=== PATIENT | male | born 1995 | race Caucasian/White ===

== ENCOUNTER 2020-11-17 20:42 | Emergency (ER) | payer OTHER ==
[~2020-11-17] VITALS: Ht 185.4 cm; Wt 91.4 kg
[2020-11-17] MEDS ORDERED: ONDANSETRON 4MG/2ML VIAL IV ONE (21:55)
[2020-11-17] MEDS ORDERED: NS 1,000 ML IV ONE ×2 (21:55→23:05)
--- NOTE | 2020-11-17 22:06 | REPVR ---
PROCEDURE INFORMATION: Exam: CT Head Without Contrast Exam date and time: 11/17/2020 9:56 PM Age: 25 years old Clinical indication: Syncope and collapse; Additional info: Near-syncope TECHNIQUE: Imaging protocol: Computed tomography of the head without contrast. Radiation optimization: All CT scans at this facility use at least one of these dose optimization techniques: automated exposure control; mA and/or kV adjustment per patient size (includes targeted exams where dose is matched to clinical indication); or iterative reconstruction. COMPARISON: No relevant prior studies available. FINDINGS: Brain: Normal. No hemorrhage. Unremarkable white matter. No mass effect. Cerebral ventricles: No ventriculomegaly. Paranasal sinuses: Visualized sinuses are unremarkable. No fluid levels. Mastoid air cells: Visualized mastoid air cells are well aerated. 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 Soft tissues: Unremarkable. IMPRESSION: Negative noncontrast head CT. Electronically signed by: Julio Galloway On 11/17/2020 22:06:03 PM
[2020-11-17 22:24] LABS: BASO % 0.1 % (0.0-1.0); EOS % 0.1 % (0.0-3.0); HEMATOCRIT 47.9 % (42.0-52.0); HEMOGLOBIN 15.6 g/dl (13.5-17.5); LYMPH # 0.7 10^3/uL (1.5-5.0); LYMPH % 6.5 % (24.0-44.0); MEAN CORPUSCULAR HEMOGLOBIN 28.7 pg (27.0-33.0); MEAN CORPUSCULAR HGB CONC 32.6 g/dl (32.0-36.5); MEAN CORPUSCULAR VOLUME 88.1 fl (80.0-96.0); MONO # 0.4 10^3/uL (0.0-0.8); NEUTROPHILS # 9.6 10^3/uL (1.5-8.5); NEUTROPHILS % 88.8 % (36.0-66.0); PLATELET COUNT, AUTOMATED 253 10^3/uL (150-450); RED BLOOD COUNT 5.44 10^6/uL (4.30-6.10); WHITE BLOOD COUNT 10.8 10^3/uL (4.0-10.0)
[2020-11-17 22:45] LABS: AMPHETAMINES LEVEL URINE POSITIVE (NEGATIVE); BARBITURATES URINE NEGATIVE (NEGATIVE); BENZODIAZEPINES URINE NEGATIVE (NEGATIVE); CANNABINOIDS URINE NEGATIVE (NEGATIVE); COCAINE METABOLITE URINE NEGATIVE (NEGATIVE); METHADONE URINE NEGATIVE (NEGATIVE); OPIATES URINE NEGATIVE (NEGATIVE); PHENCYCLIDINE URINE NEGATIVE (NEGATIVE)
[2020-11-17 22:55] LABS: BLOOD UREA NITROGEN 17 MG/DL (7-18); CALCIUM LEVEL 8.6 MG/DL (8.5-10.1); CARBON DIOXIDE LEVEL 27 MEQ/L (21-32); CHLORIDE LEVEL 106 MEQ/L (98-107); CK-MB VALUE MASS 3.1 NG/ML (<3.6); CPK CREATINE PHOSPHOKINASE 323 U/L (39-308); CREATININE FOR GFR 1.37 MG/DL (0.70-1.30); FREE T4 1.34 NG/DL (0.76-1.46); GLOMERULAR FILTRATION RATE > 60.0 (>60); GLUCOSE, FASTING 104 MG/DL (70-100); MAGNESIUM LEVEL 2.3 MG/DL (1.8-2.4); MB/CK RELATIVE INDEX 0.96 (< OR =4); POTASSIUM SERUM 4.3 MEQ/L (3.5-5.1); SODIUM LEVEL 139 MEQ/L (136-145); TROPONIN I < 0.02 NG/ML (< 0.10)
[2020-11-18 01:04] VITALS: BP 141/71
--- NOTE | 2020-11-18 09:04 | ECGEPIP ---
[facility] - ED Test Date: 2020-11-17 Pat Name: LADY PERAZA Department: Room: - Gender: Male Event Operations Manager: harvinder : 1995 Requested By: MICHAELLE HUSSEIN PA-C Order Number: [id number] Reading MD: Agustin Perez Measurements Intervals [place] Rate: 74 P: 43 MD: 144 QRS: 57 QRSD: 96 T: 21 QT: 422 QTc: 468 Interpretive Statements Sinus rhythm with premature atrial complexes with aberrant conduction NONSPECIFIC T WAVE ABNORMALITY(S) NO PRIORS FOR COMPARISON Electronically Signed on 11-18-2020 9:04:15 EDT by Agustin Perez
== END 2020-11-18 01:06 | disposition home or self-care (01) ==
LOC: M ED 20:42
DX: R42 Dizziness and giddiness (principal); R20.2 Paresthesia of skin; T43.625A Adverse effect of amphetamines, initial encounter
CPT/HCPCS: 70450; 80048; 80307; 82550; 82553; 83735; 84439; 84443; 84484; 85025; 85379; 93005; 96361; 96374; 99284; J2405

== ENCOUNTER 2021-02-27 06:31 | Emergency (ER) | payer OTHER ==
[~2021-02-27] VITALS: Ht 185.4 cm; Wt 93.2 kg
--- OUTSIDE RECORDS SUMMARY | 2021-02-27 07:21 | CCD ---
Author Author [facility] Address Unknown Phone Unavailable Support Name Relationship Address Phone [facility] Next Of Kin [address] [place] [address] Unavailable Re-disclosure Warning The records that you are about to access may contain information from federally-assisted alcohol or drug abuse programs. If such information is present, then the following federally mandated warning applies: This information has been disclosed to you from records protected by federal confidentiality rules (42 CFR part 2). The federal rules prohibit you from making any further disclosure of this information unless further disclosure is expressly permitted by the written consent of the person to whom it pertains or as otherwise permitted by 42 CFR part 2. A general authorization for the release of medical or other information is NOT sufficient for this purpose. The Federal rules restrict any use of the information to criminally investigate or prosecute any alcohol or drug abuse patient.The records that you are about to access may contain highly sensitive health information, the redisclosure of which is protected by Article 27-F of the [facility] Public Health law. If you continue you may have access to information: Regarding HIV / AIDS; Provided by facilities licensed or operated by the [facility] Office of Mental Health; or Provided by the [facility] Office for People With Developmental Disabilities. If such information is present, then the following [facility] mandated warning applies: This information has been disclosed to you from confidential records which are protected by state law. State law prohibits you from making any further disclosure of this information without the specific written consent of the person to whom it pertains, or as otherwise permitted by law. Any unauthorized further disclosure in violation of state law may result in a fine or senior living sentence or both. A general authorization for the release of medical or other information is NOT sufficient authorization for further disc losure. Immunizations Vaccine Date Status Description Data Source(s) COVID-19 VACCINE Pfizer 07/27/2020 12:00:00 AM EDT completed [facility] Vaccine Series Complete: NOThis Data was Submitted to [facility] Via [place]. Medications No Information Insurance Providers Payer name Policy type / Coverage type Policy ID Covered alliance party ID Covered alliance party's relationship to casas Policy [place] Plan Information [facility] [employer] [id number] Problems, Conditions, and Diagnoses No Information Surgeries/Procedures No Information Results No Information Social History No Information
--- NOTE | 2021-02-27 09:01 | REP ---
INDICATION: chest pain COMPARISON: None. TECHNIQUE: Portable AP view of the chest FINDINGS: The mediastinum and cardiac silhouette are within normal limits for portable technique. The lung dobbs are clear without acute consolidation, effusion, or pneumothorax. Skeletal structures are intact. IMPRESSION: No acute cardiopulmonary process appreciated. <Electronically signed by Srinivasan Fishman > 02/27/21 0818
[2021-02-27 10:30] VITALS: BP 149/65
--- NOTE | 2021-02-28 20:44 | ECGEPIP ---
[facility] - ED Test Date: 2021-02-27 Pat Name: LADY PERAZA Department: Room: - Gender: Male Emergency Department Rn: ED : 1995 Requested By: HUSAM Mast Order Number: [id number] Reading MD: Agustin Perez Measurements Intervals [place] Rate: 60 P: 52 [place]: 156 QRS: 55 QRSD: 98 T: 10 QT: 416 QTc: 416 Interpretive Statements Sinus rhythm with premature atrial complexes in a pattern of bigeminy Incomplete right bundle branch block NONSPECIFIC T WAVE ABNORMALITY(S) SIMILAR TO 11/17/20 Electronically Signed on 02-28-2021 20:44:29 EST by Agustin Perez
== END 2021-02-27 10:44 | disposition home or self-care (01) ==
LOC: EDBD 06:31 → M ED 06:31
DX: R07.89 Other chest pain (principal); I45.19 Other right bundle-branch block

== ENCOUNTER → 2024-01-15 | Outpatient (REF) | payer OTHER ==
[2024-01-15 17:30] LABS: Trichomonas vaginalis (AMP) NOT DETECTED (NEGATIVE)
[2024-01-18 13:36] LABS: GC DNA AMPLIFICATION NEGATIVE (NEGATIVE)
== END ==
LOC: M LAB REF 16:02
PROVIDERS: ATTEND Physician Assistant Medical
DX: Z20.2 Contact with and (suspected) exposure to infections with a predominantly sexual mode of transmission (principal)